=== PATIENT | male | born 1980 | race Caucasian/White ===

== ENCOUNTER 2021-02-27 13:43 | Emergency (ER) | payer OTHER ==
[2021-02-27 15:35] LABS: BASOPHIL 0.3 % (0-2); HCT 48.8 % (42.0-52.0); HGB 14.4 g/dl (13.2-18.0); LYMPHOCYTE 10.8 % (15-48); MCH 27.4 pg (25.0-31.0); MCHC 29.5 g/dL (32.0-36.0); MCV 92.8 fL (78.0-100.0); MONOCYTE 6.6 % (0-12); MPV 9.6 fL (6.0-9.5); NEUTROPHIL 79.9 % (41-80); NRBC 0; PLT 331 K/uL (150-400); RBC 5.26 M/uL (4.70-6.00); RDW 15.9 % (11.5-14.0); WBC 11.6 K/uL (4.0-10.5)
[2021-02-27 15:58] LABS: BUN/CREAT RATIO (CALC) 12.8 RATIO; CREATININE 0.78 mg/dL (0.67-1.17); POTASSIUM 3.8 mmol/L (3.5-5.1)
[2021-02-27 17:03] LABS: CORONAVIRUS 2019 SARS-COV-2 NEGATIVE (NEGATIVE); INFLUENZA A NAA NEGATIVE (NEGATIVE)
== END 2021-02-27 22:56 | disposition left against medical advice (07) ==
LOC: FER 13:43
PROVIDERS: Internal Medicine
DX: I50.9 Heart failure, unspecified (principal); J96.21 Acute and chronic respiratory failure with hypoxia; J96.22 Acute and chronic respiratory failure with hypercapnia; E66.2 Morbid (severe) obesity with alveolar hypoventilation; Z53.8 Procedure and treatment not carried out for other reasons; Z20.822 Contact with and (suspected) exposure to COVID-19
CPT/HCPCS: 36415; 36600; 71045; 71275; 80048; 82803; 83880; 84484; 85025; 93005; 94640; 94664; 94762; U0002

== ENCOUNTER 2021-03-09 11:14 | Inpatient (IN) | payer OTHER ==
[~2021-03-09] VITALS: Ht 180.3 cm; Wt 192.0 kg
[2021-03-09 11:40] LABS: BASOPHIL 0.2 % (0-2); EOSINOPHIL 1.6 % (0-5); HCT 48.9 % (42.0-52.0); HGB 14.5 g/dl (13.2-18.0); MCH 26.8 pg (25.0-31.0); MCHC 29.7 g/dL (32.0-36.0); MCV 90.4 fL (78.0-100.0); MONOCYTE 7.3 % (0-12); MPV 9.9 fL (6.0-9.5); NEUTROPHIL 82.4 % (41-80); NRBC 0; PLT 323 K/uL (150-400); RBC 5.41 M/uL (4.70-6.00); RDW 15.7 % (11.5-14.0); WBC 11.6 K/uL (4.0-10.5)
[2021-03-09 11:59] LABS: LACTIC ACID 1.4 mmol/L (0.4-1.9)
[2021-03-09 12:03] LABS: ALKALINE PHOSHATASE 105 U/L (46-116); ALT 18 U/L (16-63); AST 15 U/L (15-37); BILIRUBIN - TOTAL 0.6 mg/dL (0.2-1.0); BUN 9 mg/dL (7-18); BUN/CREAT RATIO (CALC) 16.4 RATIO; CHLORIDE 90 mmol/L (98-107); CREATININE 0.55 mg/dL (0.67-1.17); GLOBULIN (CALCULATION) 4.7 g/dL; GLUCOSE 104 mg/dL (74-106); POTASSIUM 2.9 mmol/L (3.5-5.1); TOTAL PROTEIN 7.7 g/dL (6.4-8.2)
[2021-03-09 12:11] LABS: CO2 (BICARBONATE) > 45 mmol/L (21-32)
[2021-03-09 13:02] LABS: CORONAVIRUS 2019 SARS-COV-2 NEGATIVE (NEGATIVE); INFLUENZA A NAA NEGATIVE (NEGATIVE)
[2021-03-09 18:42] LABS: BASOPHIL 0.2 % (0-2); EOSINOPHIL 2.1 % (0-5); HCT 46.9 % (42.0-52.0); HGB 14.1 g/dl (13.2-18.0); LYMPHOCYTE 7.8 % (15-48); MCH 26.7 pg (25.0-31.0); MCHC 30.1 g/dL (32.0-36.0); MCV 88.8 fL (78.0-100.0); MONOCYTE 6.4 % (0-12); MPV 10.2 fL (6.0-9.5); NEUTROPHIL 83.2 % (41-80); NRBC 0; RBC 5.28 M/uL (4.70-6.00); RDW 15.8 % (11.5-14.0); WBC 11.8 K/uL (4.0-10.5)
[2021-03-09 19:13] LABS: PLT 239 K/uL (150-400)
[2021-03-09 19:36] LABS: INR 1.08 (0.9-1.2); PROTHROMBIN TIME 13.4 SECONDS (11.8-13.4); PTT 29.6 SECONDS (24.4-34.7)
[2021-03-09 19:37] LABS: D-DIMER 1.97 ug/mLFEU (0.00-0.41)
[2021-03-10 05:47] LABS: BUN/CREAT RATIO (CALC) 13.1 RATIO; CREATININE 0.61 mg/dL (0.67-1.17); MAGNESIUM 2.6 mg/dL (1.8-2.4); PHOSPHORUS 4.2 mg/dL (2.6-4.7); POTASSIUM 3.7 mmol/L (3.5-5.1)
[2021-03-10 06:04] LABS: BASOPHIL 0.2 % (0-2); EOSINOPHIL 2.2 % (0-5); HCT 45.3 % (42.0-52.0); HGB 13.6 g/dl (13.2-18.0); MCV 89.9 fL (78.0-100.0); MONOCYTE 6.8 % (0-12); MPV 10.2 fL (6.0-9.5); NEUTROPHIL 82.4 % (41-80); NRBC 0; PLT 317 K/uL (150-400); RBC 5.04 M/uL (4.70-6.00); RDW 15.8 % (11.5-14.0); WBC 11.2 K/uL (4.0-10.5)
[2021-03-10 09:29] LABS: BILIRUBIN NEGATIVE (NEGATIVE); BLOOD 3+ Ery/uL (NEGATIVE); CLARITY CLEAR (CLEAR); COLOR YELLOW (YELLOW); GLUCOSE (U) NORMAL (NORMAL); LEUKOCYTES NEGATIVE Leu/uL (NEGATIVE); NITRITE NEGATIVE (NEGATIVE); PROTEIN 1+ mg/dL (NEGATIVE); SPECIFIC GRAVITY >=1.030 (1.001-1.030); UROBILINOGEN 0.2 mg/dL (0.2-1.0)
[2021-03-10 09:35] LABS: BACTERIA TRACE; URINARY RBC 20-50
--- NOTE | 2021-03-10 12:50 | NUR ---
03/10/21 A social assessment was conducted at bedside with Erika García, mother, present. Ms. García reported the following: Mr. García lives alone. He does don't have any DME. - Please monitor for 02 and HH needs. - Ms. García chose [facility] for any DME needs and [facility] for HH needs. - Dr. Ch is patient's PCP. - Ms. García reports her son to be dx with bipolar disease. He is not followed by behavioral health services. He discontinued services at [facility]. They were referred to [facility].
--- NOTE | 2021-03-10 16:47 | NUR ---
THIS RN CALLED TO BEDSIDE AT 1300 BY PT'S MOTHER, WHO STATED SHE "CANNOT WAKE HIM UP." PT FOUND TO BE UNAROUSABLE IN CHAIR. FIDELINA SCHNEIDER ARRIVED AT BEDSIDE AND ORDERED STAT ABGS. PT PLACED ON BIPAP AND BEGAN TO RESPOND AT THAT TIME. C02 FOUND TO BE 106.
--- NOTE | 2021-03-11 01:51 | NUR ---
[facility] NURSE WENT INTO ROOM AROUND 1914 TO PASS MEDICATIONS ORDERED ON . PT. WAS VERY HARD TO AROUSE, LIPS STARTING TO TURN BLUE, PT SITTING UP IN CHAIR ON BIPAP. O2 SAT WOULD NOT RAISE WITH ARROUSAL SO A RAPID RESPONSE WAS CALLED. RT AT BEDSIDE CHANGED SETTINGS ON BIPAP MACHINE AND O2 SATS WERE UP IN THE LOW 90'S. PT WAS DISORIENTED AT FIRST BUT CAME BACK AROUND. PT. VERY ANXIOUS. WAS ASSISTED UP TO GET BACK IN THE BED. PT HAD INCONTINENT EPISODE. VALIUM PO WAS GIVEN AND PT WAS BACK TO RESTING. NO OTHER EPISODES SO FAR. WILL CONTINUE TO MONITOR. ER,RN
[2021-03-11 05:11] LABS: HIV AB/P24 AG SCREEN Non Reactive (Non Reactive)
[2021-03-11 06:07] LABS: INR 1.13 (0.9-1.2); PROTHROMBIN TIME 13.9 SECONDS (11.8-13.4); PTT 31.3 SECONDS (24.4-34.7)
[2021-03-11 06:08] LABS: D-DIMER 3.8 ug/mLFEU (0.00-0.41)
[2021-03-11 06:09] LABS: BASOPHIL 0.1 % (0-2); EOSINOPHIL 0 % (0-5); HCT 46.7 % (42.0-52.0); HGB 13.9 g/dl (13.2-18.0); LYMPHOCYTE 1.8 % (15-48); MCH 26.8 pg (25.0-31.0); MCHC 29.8 g/dL (32.0-36.0); MONOCYTE 0.9 % (0-12); MPV 9.6 fL (6.0-9.5); NRBC 0; PLT 294 K/uL (150-400); RBC 5.19 M/uL (4.70-6.00); RDW 14.8 % (11.5-14.0); RETICULOCYTE COUNT 1.8 % (1.0-2.0); WBC 14.1 K/uL (4.0-10.5)
[2021-03-11 06:33] LABS: NEUTROPHIL 96.8 % (41-80)
[2021-03-11 06:39] LABS: IRON % SATURATION 7.4 %SAT (20-50)
[2021-03-11 06:52] LABS: ALKALINE PHOSHATASE 94 U/L (46-116); ALT 18 U/L (16-63); AST 12 U/L (15-37); BILIRUBIN - TOTAL 0.6 mg/dL (0.2-1.0); BUN 11 mg/dL (7-18); BUN/CREAT RATIO (CALC) 20.4 RATIO; CHLORIDE 91 mmol/L (98-107); CREATININE 0.54 mg/dL (0.67-1.17); GLOBULIN (CALCULATION) 4.7 g/dL; GLUCOSE 155 mg/dL (74-106); MAGNESIUM 2.3 mg/dL (1.8-2.4); PHOSPHORUS 3.3 mg/dL (2.6-4.7); POTASSIUM 3.6 mmol/L (3.5-5.1); TOTAL PROTEIN 7.7 g/dL (6.4-8.2)
[2021-03-11 07:07] LABS: CO2 (BICARBONATE) > 45 mmol/L (21-32)
[2021-03-11 21:24] LABS: B. PERTUSSIS DNA NOT DETECTED (NOT DETECT); CHLAMYDOPHILA PNEUMON DNA PCR NN (NOT DETECT); CORONAVIRUS 229E NOT DETECTED (NOT DETECT); CORONAVIRUS HKU1 NOT DETECTED (NOT DETECT); CORONAVIRUS NL63 NOT DETECTED (NOT DETECT); CORONAVIRUS OC43 NOT DETECTED (NOT DETECT); HUMAN METAPNEUMO NOT DETECTED (NOT DETECT); INFLUENZA A NOT DETECTED (NOT DETECT); INFLUENZA A 2009 H1N1 NOT DETECTED (NOT DETECT); INFLUENZA A H1 NOT DETECTED (NOT DETECT); INFLUENZA A H3 NOT DETECTED (NOT DETECT); INFLUENZA B NOT DETECTED (NOT DETECT); MYCOPLASMA PNEUMONIAE NOT DETECTED (NOT DETECT); PARAINFLUENZA 1 NOT DETECTED (NOT DETECT); PARAINFLUENZA 2 NOT DETECTED (NOT DETECT); PARAINFLUENZA 3 NOT DETETED (NOT DETECT); PARAINFLUENZA 4 NOT DETECTED (NOT DETECT); RESPIRATORY SYNCYTIAL VIRUS NOT DETECTED (NOT DETECT)
[2021-03-11 21:25] LABS: CORONAVIRUS 2019 PCR NOT DETECTED (NOT DETECTD)
[2021-03-12 06:01] LABS: BASOPHIL 0.1 % (0-2); EOSINOPHIL 0.1 % (0-5); HCT 47.2 % (42.0-52.0); LYMPHOCYTE 6.9 % (15-48); MCH 26.6 pg (25.0-31.0); MCHC 29.7 g/dL (32.0-36.0); MCV 89.6 fL (78.0-100.0); MONOCYTE 7.3 % (0-12); MPV 9.4 fL (6.0-9.5); NEUTROPHIL 85.3 % (41-80); NRBC 0; PLT 300 K/uL (150-400); RBC 5.27 M/uL (4.70-6.00); WBC 13.3 K/uL (4.0-10.5)
[2021-03-12 06:13] LABS: INR 1.11 (0.9-1.2); PROTHROMBIN TIME 13.7 SECONDS (11.8-13.4); PTT 30.9 SECONDS (24.4-34.7)
[2021-03-12 06:14] LABS: D-DIMER 2.41 ug/mLFEU (0.00-0.41)
[2021-03-12 06:32] LABS: BUN 15 mg/dL (7-18); BUN/CREAT RATIO (CALC) 26.8 RATIO; CHLORIDE 93 mmol/L (98-107); CREATININE 0.56 mg/dL (0.67-1.17); GLUCOSE 142 mg/dL (74-106); MAGNESIUM 2.3 mg/dL (1.8-2.4); POTASSIUM 3.7 mmol/L (3.5-5.1)
[2021-03-12 06:33] LABS: CO2 (BICARBONATE) > 45 mmol/L (21-32)
[2021-03-12] MEDS ORDERED: POTASSIUM CHLO20 ME1 PO (16:11)
[2021-03-12] MEDS ORDERED: POLY-IRON150 MG PO (16:11)
[2021-03-12] MEDS ORDERED: BUMEX1 MG PO (16:11)
[2021-03-12] MEDS ORDERED: VITAMIN B-121000 MC1 PO ×2 (16:11→16:18)
[2021-03-12] MEDS ORDERED: FOLIC ACID1 MG PO ×2 (16:11→16:18)
[2021-03-13 17:10] LABS: ANTIMYELOPEROXIDASE (MPO) ABS <9.0 U/mL (0.0-9.0); ANTIPROTEINASE 3 (PR-3) ABS <3.5 U/mL (0.0-3.5); ATYPICAL PANCA <1:20 titer (Neg:<1:20); CYTOPLASMIC (C-ANCA) <1:20 titer (Neg:<1:20); PERINUCLEAR (P-ANCA) <1:20 titer (Neg:<1:20)
== END 2021-03-12 16:30 | disposition home or self-care (01) | DRG 291 ==
LOC: FER 11:14 → FTCU 13:10
PROVIDERS: Internal Medicine; Internal Medicine Cardiovascular Disease; Nurse Practitioner Acute Care; ADMIT Internal Medicine
PROC: 5A09357 Assistance with Respiratory Ventilation, Less than 24 Consecutive Hours, Continuous Positive Airway Pressure (ICD-10-PCS; principal; 2021-03-09)
PROC: 8E0ZXY6 Isolation (ICD-10-PCS; 2021-03-09)
DX: I11.0 Hypertensive heart disease with heart failure (principal); I50.33 Acute on chronic diastolic (congestive) heart failure; J96.21 Acute and chronic respiratory failure with hypoxia; J96.22 Acute and chronic respiratory failure with hypercapnia; G93.41 Metabolic encephalopathy; E66.2 Morbid (severe) obesity with alveolar hypoventilation; D69.0 Allergic purpura; Z68.43 Body mass index [BMI] 50.0-59.9, adult; Z20.822 Contact with and (suspected) exposure to COVID-19; I27.20 Pulmonary hypertension, unspecified; E87.6 Hypokalemia; F31.9 Bipolar disorder, unspecified; F41.9 Anxiety disorder, unspecified; T39.015A Adverse effect of aspirin, initial encounter; Z87.891 Personal history of nicotine dependence
CPT/HCPCS: 36415; 36600; 71045; 80048; 80053; 81001; 82595; 82607; 82746; 82803; 83036; 83520; 83540; 83550; 83605; 83735; 83880; 84100; 84145; 84484; 85025; 85379; 85384; 85610; 85730; 86038; 86160; 86162; 86256; 86431; 86708; 87040; 87389; 93005; 93970; 94640; 94660; 94668; 97165; 97530; J0456; J0696; J1940; J2543; J2916; J2930; J3420; J3475; J3480; J7050; U0002